=== PATIENT | female | born 1940 | race African-American/Black ===

== ENCOUNTER 2018-06-12 22:42 | Observation (INO) | payer MEDICARE ==
[~2018-06-12] VITALS: Ht 172.7 cm; Wt 74.4 kg
[2018-06-13] MEDS ORDERED: ONDANSETRON HCL 4MG/2ML VIAL IV STA (00:40)
[2018-06-13] MEDS ORDERED: MORPHINE SULFATE 4 MG/ML CPJ (NOT FOR IM USE) IV STA (00:40)
[2018-06-13] MEDS ORDERED: SODIUM CHLORIDE 0.9% 1,000 ML IV ONE (00:40)
[2018-06-13] MEDS ORDERED: FAMOTIDINE 20MG/2ML VIAL IV STA (00:40)
[2018-06-13 01:03] LABS: BASOPHILS % 0.4 % (0.0-2.0); EOSINOPHILS % 3.3 % (0.0-5.0); HEMOGLOBIN. 10.1 g/dL (12.0-16.0); LYMPHOCYTES % 21.6 % (20.0-50.0); MEAN CORPUSCULAR HEMOGLOBIN 25.6 pg (28.0-32.0); MEAN CORPUSCULAR VOLUME 78.4 fL (81.0-99.0); MEAN PLATELET VOLUME 7.9 fl (7.4-10.4); MONOCYTES % 11.2 % (2.0-8.0); NEUTROPHILS % 63.5 % (40.0-76.0); PLATELET 521 x1000/uL (130-400); RED BLOOD CELL COUNT 3.96 mill/uL (4.2-5.4); RED CELL DISTRIBUTION WIDTH 16.6 % (11.6-14.6)
[2018-06-13 01:07] LABS: CHLORIDE 93 mEq/L (98-107)
[2018-06-13 01:09] LABS: INR 1.2; PROTHROMBIN TIME 12.1 sec (9.4-11.6)
[2018-06-13] MEDS ORDERED: POTASSIUM CHLORIDE 20MEQ TABLET SR PO SCH (01:30)
[2018-06-13] MEDS ORDERED: KCL 10MEQ/50ML PREMIX 50 ML IV SCH (01:30)
[2018-06-13 04:00] VITALS: BP 140/68
[2018-06-13 05:00] VITALS: BP 131/64
[2018-06-13] MEDS ORDERED: ONDANSETRON HCL 4MG/2ML VIAL IV PRN (05:45)
[2018-06-13] MEDS ORDERED: MORPHINE SULFATE 4 MG/ML CPJ (NOT FOR IM USE) IV PRN ×2 (06:00)
[2018-06-13] MEDS ORDERED: PANT40TA4 PO (06:08)
[2018-06-13] MEDS ORDERED: MEGE40TA2 PO (06:08)
[2018-06-13] MEDS ORDERED: CARV6.2548 PO (06:08)
[2018-06-13] MEDS ORDERED: LOVA40TA73 PO (06:08)
[2018-06-13] MEDS ORDERED: SUCR1TAB PO (06:08)
[2018-06-13] MEDS ORDERED: POTA10TA11 PO (06:08)
[2018-06-13] MEDS ORDERED: DEXT 5%/0.45% NACL KCL 40MEQ/L 1,000 ML IV SCH (07:00)
[2018-06-13] MEDS ORDERED: PANTOPRAZOLE 40MG DR TABLET PO SCH (07:20)
[2018-06-13 08:00] VITALS: BP 163/79
[2018-06-13] MEDS: SUCRALFATE 1 G/10 ML UDC PO SCH ×3 (08:45→17:41)
[2018-06-13 08:46] LABS: CHLORIDE 97 mEq/L (98-107)
[2018-06-13] MEDS ORDERED: CARVEDILOL 6.25 MG TABLET PO SCH ×2 (09:00→09:45)
[2018-06-13] MEDS ORDERED: POTASSIUM BICARB/CIT ACID 25 MEQ TABLET.EFF PO NR ×2 (09:00→09:45)
[2018-06-13 11:40] LABS: TOTAL IRON BINDING CAPACITY 143 ug/dL (250-450)
[2018-06-13 12:00] VITALS: BP 96/56
[2018-06-13 16:00] VITALS: BP 109/52
[2018-06-13 16:54] LABS: CLARITY URINE CLEAR (CLEAR); COLOR URINE YELLOW (YELLOW); KETONES URINE NEGATIVE (NEGATIVE); LEUKOCYTE ESTERASE URINE 1+ (NEGATIVE); NITRITE URINE NEGATIVE (NEGATIVE); OCCULT BLOOD URINE NEGATIVE (NEGATIVE); PH URINE 6.5 (4.5-8.0); PROTEIN URINE NEGATIVE (NEGATIVE); UROBILINOGEN URINE 0.2 E.U./dL (0.2-1.0)
[2018-06-13 18:15] VITALS: BP 109/52
[2018-06-13 20:20] LABS: VITAMIN B12 SERUM 596 pg/mL (211-911)
== END 2018-06-13 19:10 | disposition home or self-care (01) ==
LOC: ER 06-13 00:47 → INTOOBSV 06-13 01:42 → 6WST 06-13 01:42 → CANRESERV 06-13 02:58 → ENRESERV 06-13 02:58
PROVIDERS: ADMIT Internal Medicine Critical Care Medicine; ATTEND Internal Medicine Critical Care Medicine
DX: R10.13 Epigastric pain (principal); R11.0 Nausea; R13.10 Dysphagia, unspecified; E78.5 Hyperlipidemia, unspecified; E87.6 Hypokalemia; E43 Unspecified severe protein-calorie malnutrition; J90 Pleural effusion, not elsewhere classified; R63.4 Abnormal weight loss; R06.02 Shortness of breath; I10 Essential (primary) hypertension; J98.11 Atelectasis; I31.3 Pericardial effusion (noninflammatory); R79.89 Other specified abnormal findings of blood chemistry; Z87.891 Personal history of nicotine dependence; Z87.11 Personal history of peptic ulcer disease; Z79.899 Other long term (current) drug therapy
CPT/HCPCS: 36415; 71045; 71250; 74176; 80048; 80053; 81003; 82378; 82607; 83540; 83550; 83605; 83690; 83735; 83880; 84132; 84134; 84484; 85025; 85610; 93005; 96361; 96365; 96366; 96375; 99291; G0378; J2270; J2405; J3480; J3490; J7030